=== PATIENT | male | born 1995 ===

== ENCOUNTER 2016-09-30 03:56 | Emergency (ER) | payer SELFPAY ==
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
[2016-09-30 04:17] VITALS: BP 109/87; PULSE 90; RESP 16; TEMP 98.1; O2SAT 98
== END 2016-09-30 04:29 ==
DX: S20.91XA Abrasion of unspecified parts of thorax, initial encounter (principal); V43.52XA Car driver injured in collision with other type car in traffic accident, initial encounter; Y92.410 Unspecified street and highway as the place of occurrence of the external cause; Y99.8 Other external cause status; Y93.89 Activity, other specified

== ENCOUNTER 2017-11-23 23:14 | Emergency (ER) | payer SELFPAY ==
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
[2017-11-23 23:50] VITALS: BP 132/94
== END 2017-11-23 23:44 | disposition home or self-care (01) ==
LOC: EDBD → EDUNIT#
DX: R41.82 Altered mental status, unspecified (principal)